=== PATIENT | female | born 2000 | race Caucasian/White ===

== ENCOUNTER 2024-04-01 21:10 | Emergency (ER) | payer OTHER ==
[2024-04-01 21:22] VITALS: BP 138/81; PULSE 112; RESP 18; TEMP 98.9; BMI 27.9
[2024-04-01] MEDS ORDERED: predniSONE 10 MG TABLET (UD) ONE (22:18)
[2024-04-01] MEDS ORDERED: predniSONE 20 MG TABLET (UD) ONE (22:18)
[2024-04-01] MEDS ORDERED: ALBUTEROL SO4 2.5/IPRATROPIUM 0.5 INH SOL 3 ML VIAL.NEB. NEB ONE (22:18)
[2024-04-01] MEDS: ALBUTEROL SO4 2.5/IPRATROPIUM 0.5 INH SOL 3 ML VIAL.NEB. NEB SCH (22:22)
[2024-04-01] MEDS: predniSONE 20 MG TABLET (UD) PO ONE (23:24)
[2024-04-02] MEDS ORDERED: predniSONE 20 MG TABLET (UD) PO ONE (22:12)
== END 2024-04-02 00:42 | disposition home or self-care (01) ==
LOC: JERFT 21:10 → JER 21:10
PROC: 3E0F7GC Introduction of Other Therapeutic Substance into Respiratory Tract, Via Natural or Artificial Opening (ICD-10-PCS; principal; 2024-04-01)
DX: J45.901 Unspecified asthma with (acute) exacerbation (principal); R06.02 Shortness of breath; R07.89 Other chest pain; R05.9 Cough, unspecified; R00.0 Tachycardia, unspecified
CPT/HCPCS: 99283-25

== ENCOUNTER 2024-04-19 09:07 | Emergency (ER) | payer OTHER ==
[2024-04-19 09:13] VITALS: BP 119/88; PULSE 115; RESP 20; TEMP 98.8; BMI 27.9
[2024-04-19] MEDS ORDERED: ALBUTEROL SO4 2.5/IPRATROPIUM 0.5 INH SOL 3 ML VIAL.NEB. NEB ONE ×2 (09:45→09:53)
[2024-04-19] MEDS: ALBUTEROL SO4 2.5/IPRATROPIUM 0.5 INH SOL 3 ML VIAL.NEB. NEB SCH (09:50)
[2024-04-19] MEDS ORDERED: predniSONE 20 MG TABLET (UD) ONE (10:26)
[2024-04-19] MEDS: predniSONE 20 MG TABLET (UD) PO ONE (10:27)
== END 2024-04-19 11:35 | disposition home or self-care (01) ==
LOC: JER 09:07
PROC: 3E0F7GC Introduction of Other Therapeutic Substance into Respiratory Tract, Via Natural or Artificial Opening (ICD-10-PCS; principal; 2024-04-19)
DX: J45.21 Mild intermittent asthma with (acute) exacerbation (principal); R06.02 Shortness of breath; R05.9 Cough, unspecified
CPT/HCPCS: 71046-TC-FY; 93005; 93010; 99284-25